=== PATIENT | female | born 1960 | race Caucasian/White ===

== ENCOUNTER 2019-06-21 14:04 | Inpatient (IN) ==
[2019-06-21] MEDS ORDERED: Loratadine 10 MG TABLET PO PRN (14:37)
[2019-06-21] MEDS ORDERED: Tetrahydrozoline 15 ML BOTTLE RIGHT EYE PRN (14:39)
[2019-06-21] MEDS ORDERED: Ondansetron ODT 4 MG TAB.RAPDIS PO PRN (14:39)
[2019-06-21 15:25] LABS: Basophils # 0.1 K/mcL (0.0-0.2); Basophils % 1.6 %; Eosinophils # 0.3 K/mcL (0.0-0.6); Eosinophils % 5.1 %; Hematocrit 41.8 % (35.3-44.9); Hemoglobin 13.7 g/dL (11.5-15.4); Immature Granulocytes % 0.2 % (0-4); Lymphocytes # 1.4 K/mcL (0.6-4.6); Lymphocytes % 22.9 %; Mean Corpuscular HGB Conc 32.8 g/dL (31.6-35.5); Mean Corpuscular Hemoglobin 28.8 pg (28.0-33.3); Mean Platelet Volume 9.2 fL (9.4-12.4); Monocytes # 0.7 K/mcL (0.0-1.3); Monocytes % 10.9 %; Neutrophils # 3.7 K/mcL (1.6-8.9); Platelet Count 327 K/mcL (140-400); Red Blood Count 4.75 M/mcL (3.82-4.97); Red Cell Distribution Width 12.9 % (11.5-14.5); Segmented Neutrophils % 59.3 %; White Blood Count 6.3 K/mcL (4.3-11.1)
[2019-06-21] MEDS: Ciprofloxacin HCL Soln 5 ML BOTTLE RIGHT EYE SCH ×4 (17:09→23:30)
[2019-06-21] MEDS: *HR* Rivaroxaban 15 MG TABLET PO SCH (21:16)
[2019-06-21] MEDS: *HR* OxyCODONE/APAP 5/325 TABLET PO PRN (21:16)
[2019-06-22] MEDS: Acetaminophen 325 MG TABLET PO PRN (00:42)
[2019-06-22] MEDS: Ciprofloxacin HCL Soln 5 ML BOTTLE RIGHT EYE SCH ×12 (00:46→23:37)
[2019-06-22 07:23] LABS: Basophils # 0.1 K/mcL (0.0-0.2); Eosinophils # 0.6 K/mcL (0.0-0.6); Eosinophils % 8.7 %; Hematocrit 42.7 % (35.3-44.9); Immature Granulocytes % 0.3 % (0-4); Lymphocytes # 1.9 K/mcL (0.6-4.6); Lymphocytes % 27.4 %; Mean Corpuscular HGB Conc 32.8 g/dL (31.6-35.5); Mean Corpuscular Hemoglobin 28.7 pg (28.0-33.3); Mean Corpuscular Volume 87.7 fL (83.0-100.0); Monocytes # 0.9 K/mcL (0.0-1.3); Monocytes % 13.3 %; Neutrophils # 3.4 K/mcL (1.6-8.9); Platelet Count 346 K/mcL (140-400); Red Blood Count 4.87 M/mcL (3.82-4.97); Red Cell Distribution Width 12.8 % (11.5-14.5); Segmented Neutrophils % 48.3 %
[2019-06-22 07:43] LABS: BUN/Creatinine Ratio 23 (6-26); Blood Urea Nitrogen 17 mg/dL (8-23); Calcium 9.3 mg/dL (8.6-10.3); Carbon Dioxide 29 mEq/L (23-29); Chloride 99 mEq/L (98-107); Glucose 67 mg/dL (70-105); Osmolality,Calculated 284 (280-300); Potassium 3.9 mEq/L (3.5-5.1); Sodium 137 mEq/L (136-145); eGFR For African Americans > 60 (> 60); eGFR For Non-African Americans > 60 (> 60)
[2019-06-22] MEDS: *HR* Rivaroxaban 15 MG TABLET PO SCH ×2 (08:11→21:58)
[2019-06-22] MEDS: *HR* OxyCODONE/APAP 5/325 TABLET PO PRN ×2 (08:14→19:02)
[2019-06-22] MEDS ORDERED: NON-FORMULARY MEDICATION 1 EACH EACH (Rivaroxaban [Xarelto] 20 MG) PO SCH (09:00)
[2019-06-23] MEDS: Ciprofloxacin HCL Soln 5 ML BOTTLE RIGHT EYE SCH ×6 (02:00→15:32)
[2019-06-23] MEDS: *HR* OxyCODONE/APAP 5/325 TABLET PO PRN ×2 (05:10→19:36)
[2019-06-23] MEDS: *HR* Rivaroxaban 15 MG TABLET PO SCH ×2 (08:39→19:36)
[2019-06-23] MEDS: Acetaminophen 325 MG TABLET PO PRN (08:42)
[2019-06-23] MEDS: Sennosides/Docusate Sodium TABLET PO PRN (08:42)
[2019-06-23] MEDS ORDERED: Ciprofloxacin OPTH Soln 2.5 ML BOTTLE RIGHT EYE SCH (14:00)
[2019-06-23] MEDS: Ciprofloxacin OPTH Soln 2.5 ML BOTTLE RIGHT EYE SCH ×5 (15:15→23:31)
[2019-06-24] MEDS: *HR* OxyCODONE/APAP 5/325 TABLET PO PRN ×3 (03:30→18:27)
[2019-06-24] MEDS: Ciprofloxacin OPTH Soln 2.5 ML BOTTLE RIGHT EYE SCH ×5 (05:06→20:51)
[2019-06-24] MEDS: Sennosides/Docusate Sodium TABLET PO PRN (09:22)
[2019-06-24] MEDS: *HR* Rivaroxaban 15 MG TABLET PO SCH ×2 (09:22→20:50)
[2019-06-24] MEDS: Furosemide 20 MG TABLET PO SCH ×2 (18:26→18:27)
[2019-06-25] MEDS: *HR* OxyCODONE/APAP 5/325 TABLET PO PRN ×3 (01:34→14:36)
[2019-06-25 07:50] VITALS: BP 107/62
[2019-06-25] MEDS: Furosemide 20 MG TABLET PO SCH (08:10)
[2019-06-25] MEDS: *HR* Rivaroxaban 15 MG TABLET PO SCH (08:10)
[2019-06-25] MEDS: Sennosides/Docusate Sodium TABLET PO PRN (08:10)
[2019-06-25] MEDS: Ciprofloxacin OPTH Soln 2.5 ML BOTTLE RIGHT EYE SCH (08:14)
== END 2019-06-25 17:09 | disposition home or self-care (01) | DRG 560 ==
LOC: INPPIK 14:04
PROVIDERS: ADMIT Family Medicine; ATTEND Family Medicine